=== PATIENT | female | born 1955 | race Caucasian/White ===

== ENCOUNTER 2025-01-02 13:07 | Outpatient (CLI) | payer MEDICARE ==
--- NOTE | 2025-01-02 19:25 | RADIOLOGY REPORT ---
EXAM: MR MRI LOWER EXTREMITY RIGHT HISTORY: INJURY OF RIGHT LOWER LEG COMPARISON: None TECHNIQUE: Multiplanar, multisequence imaging of the right knee was performed without contrast FINDINGS: MEDIAL COMPARTMENT: Bucket-handle type tear of the medial meniscus with flipped flap into the interco ndylar notch. No focal chondrosis or subchondral edema. LATERAL COMPARTMENT: Inner free edge suspected fraying/ tearing of the inner 1/3 of the central body of the lateral meniscus. Subchondral edema with overlying chondrosis of the posterolateral tibial carla teau. PATELLOFEMORAL COMPARTMENT: Broad area of near full-thickness to full-thickness cartilage loss of the medial patellar facet extending to the median ridge with trace delaminating tear component subchondr al edema deep to the median ridge and mesial lateral patellar facet CRUCIATE LIGAMENTS: Complete proximal tear of the anterior cruciate ligament. posterior cruciate lig ament intact. MEDIAL SUPPORTING STRUCTURES: Intact medial collateral ligament. LATERAL SUPPORTING STRUCTURES: Intact iliotibial band, lateral capsular ligament, fibular collateral ligament, popliteus, and biceps femoris tendons EXTENSOR MECHANISM: Intact JOINT SPACE/FLUID: Small to medium knee joint effusion. Fluid along the posterior joint capsule corre late for low-grade sprain. BONES: No acute fracture, osseous contusion, or aggressive focal osseous lesion MUSCLES: Fluid along the intermuscular fascial planes of the popliteus muscle belly. NEUROVASCULAR: Unremarkable OTHER: None IMPRESSION: 1. Bucket-handle type tear of the medial meniscus with flipped flap into the intercondylar notch. 2. Complete proximal tear of the anterior cruciate ligament. posterior cruciate ligament intact. 3. Inner free edge suspected fraying/ tearing of the inner 1/3 of the central body of the lateral men iscus. 4. Small to medium knee joint effusion. 5. Fluid along the intermuscular fascial planes of the popliteus muscle belly. Correlate for low-grad e muscle strain.
== END 2025-01-02 23:59 | disposition home or self-care (01) ==
LOC: MRI02 13:07
PROVIDERS: ATTEND Family Medicine
DX: S83.211A Bucket-handle tear of medial meniscus, current injury, right knee, initial encounter (principal); S83.511A Sprain of anterior cruciate ligament of right knee, initial encounter; S89.91XA Unspecified injury of right lower leg, initial encounter; M94.8X6 Other specified disorders of cartilage, lower leg; M25.461 Effusion, right knee; X58.XXXA Exposure to other specified factors, initial encounter; Y93.89 Activity, other specified; Y92.89 Other specified places as the place of occurrence of the external cause; Y99.8 Other external cause status
CPT/HCPCS: 73721